=== PATIENT | male | born 1965 | race Native Hawaiian/Other Pacific Islander ===

== ENCOUNTER 2021-06-12 12:11 | Outpatient (CLI) | payer OTHER ==
[~2021-06-12 12:11] MED LIST: CLON0.5T36 PO; FLUTICASONE50 MCG; VIBRYD OR
== END 2021-06-12 20:38 | disposition home or self-care (01) ==
LOC: US 12:11
PROVIDERS: ATTEND Family Medicine
DX: R19.01 Right upper quadrant abdominal swelling, mass and lump (principal); I16.9 Hypertensive crisis, unspecified

== ENCOUNTER 2021-06-21 12:50 | Outpatient (CLI) | payer OTHER | END 2021-06-21 19:19 | disposition home or self-care (01) | LOC: RAD 12:50 | PROVIDERS: ATTEND Internal Medicine Rheumatology | DX: R53.1 Weakness (principal); G35 Multiple sclerosis; M06.4 Inflammatory polyarthropathy ==